=== PATIENT | female | born 1965 | race Caucasian/White ===

== ENCOUNTER 2017-10-28 16:05 | Emergency (ER) | payer OTHER, SELFPAY ==
--- NOTE | 2017-10-28 17:23 | EDM.PDOC ---
ED HPI GENERAL MEDICAL PROBLEM - General Chief Complaint: Cardiovascular Problem Stated Complaint: RACING HEART BEAT/NECK HURTS Time Seen by Provider: 10/28/17 16:18 Source of Information: Reports: Patient, Family (Daughter) History Limitations: Reports: No Limitations - History of Present Illness INITIAL COMMENTS - FREE TEXT/NARRATIVE: The patient states that she developed the sensation of a rapid heartbeat and stiffness in the back of her neck around 13:00 this afternoon, while sitting on the couch. She states that she had slight lightheadedness, but no associated nausea, diaphoresis, dyspnea, or sense of impending doom. She denies having associated chest discomfort. She states that she had similar symptoms in 2007. She had an extensive workup, that included a coronary angiogram, with everything being normal. The ultimate cause of her symptoms remains unknown. The patient's PCP is Genevieve Medrano. 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 (See Below) Musculoskeletal History: Reports: Arthritis Endocrine/Metabolic History: Reports: Diabetes, Type II, Obesity/BMI 30+ - Past Surgical History HEENT Surgical History: Reports: Adenoidectomy, Myringotomy w Tube(s) (bilateral ), Tonsillectomy Cardiovascular Surgical History: Reports: Other (See Below) (Coronary angiogram approximately 2007, clean) GI Surgical History: Reports: Hernia, Inguinal (right) Female Surgical History: Reports: Breast Reduction, Tubal Ligation Social & Family History - Family History Family Medical History: Noncontributory Cardiac: Reports: High Cholesterol, Hypertension - Tobacco Use Smoking Status *Q: Former Smoker Years of Tobacco use: 26 Packs/Tins Daily: 1 Month/Year Tobacco Last Used: Quit 1990 - Caffeine Use Caffeine Use: Reports: Coffee - Alcohol Use Alcohol Use History: Yes Alcohol Use Frequency: Rarely - Recreational Drug Use Recreational Drug Use: No - Living Situation & Occupation Living situation: Reports: , with Spouse 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 ED EXAM, GENERAL - Physical Exam Exam: See Below Exam Limited By: No Limitations General Appearance: Alert, WD/WN, No Apparent Distress Eye Exam: Bilateral Eye: Normal Inspection Ears: Normal External Exam, Hearing Grossly Normal Nose: Normal Inspection, No Blood Throat/Mouth: Normal Inspection, Normal Lips, Normal Voice, No Airway Compromise Head: Atraumatic, Normocephalic Neck: Normal Inspection, Full Range of Motion Respiratory/Chest: No Respiratory Distress, Lungs Clear, Normal Breath Sounds, No Accessory Muscle Use Cardiovascular: Normal Peripheral Pulses, Regular Rate, Rhythm, No Edema, No Gallop, No JVD, No Murmur, No Rub Peripheral Pulses: 4+: Radial (L), Radial (R) GI/Abdominal: Normal Bowel Sounds, Soft, Non-Tender, No Organomegaly, No Distention, No Abnormal Bruit, No Mass, Other (Obese) (Female) Exam: Deferred Rectal (Female) Exam: Deferred Back Exam: Normal Inspection, Full Range of Motion, NT Extremities: Normal Inspection, Normal Range of Motion, No Pedal Edema, Normal Capillary Refill Neurological: Alert, Oriented, Normal Cognition, No Motor/Sensory Deficits Psychiatric: Normal Affect Skin Exam: Warm, Dry, Intact, Normal Color, No Rash EKG INTERPRETATION EKG Date: 10/28/17 Time: 16:19 Rhythm: Other (Sinus tachycardia) Rate (Beats/Min): 104 [place]: Normal P-Wave: Present QRS: Normal ST-T: Normal QT: Normal Comparison: No Change (05/29/2016) Course - Vital Signs Last Recorded V/S: Last Vital Signs Temp 36.7 C 10/28/17 16:19 Pulse 96 10/28/17 17:53 Resp 16 10/28/17 17:53 BP 126/58 L 10/28/17 17:53 Pulse Ox 95 10/28/17 17:53 - Orders/Labs/Meds Orders: Active Orders 24 hr Category Date Time Status Accu Check [Blood Glucose Check, Bedside] [RC] ONETIME Care 10/28/17 18:54 Ordered EKG Documentation Completion [RC] STAT Care 10/28/17 16:40 Active Chest 2V [CR] Stat Exams 10/28/17 16:40 Taken GLYCOSYLATED HEMOGLOBIN,HGBA1C [CHEM] Stat Lab 10/28/17 19:15 Ordered Insulin Regular, Human [HumuLIN R] Med 10/28/17 19:17 Stat 10 unit SUBCUT ONETIME STA Labs: Laboratory Tests 10/28/17 10/28/17 10/28/17 Range/Units 16:18 16:18 16:18 WBC 8.75 (3.98-10.04) K/mm3 RBC 4.98 (3.98-5.22) M/mm3 Hgb 14.2 (11.2-15.7) gm/L Hct 42.3 (34.1-44.9) % MCV 84.9 (79.4-94.8) fl MCH 28.5 (25.6-32.2) pg MCHC 33.6 (32.2-35.5) g/dl RDW Std Deviation 42.1 (36.4-46.3) fL Plt Count 347 (182-369) K/mm3 MPV 11.3 (9.4-12.3) fl Neutrophils % (Manual) 63 H (40-60) % Band Neutrophils % 0 (0-10) % Lymphocytes % (Manual) 31 (20-40) % Atypical Lymphs % 0 % Monocytes % (Manual) 4 (2-10) % Eosinophils % (Manual) 1 (0.7-5.8) % Basophils % (Manual) 1 (0.1-1.2) Platelet Estimate Adequate RBC Morph Comment Normal PT 10.1 (9.5-12.1) SECONDS INR 0.93 APTT 27 (24-31) SECONDS D-Dimer, Quantitative 0.29 (0.19-0.50) mg/L Sodium 135 L (136-145) mEq/L Potassium 3.8 (3.5-5.1) mEq/L Chloride 97 L (98-107) mEq/L Carbon Dioxide 27 (21-32) mEq/L Anion Gap 14.8 (5-15) BUN 18 (7-18) mg/dL Creatinine 0.9 (0.55-1.02) mg/dL Est Cr Clr Drug Dosing 62.42 mL/min Estimated GFR (MDRD) > 60 (>60) mL/min BUN/Creatinine Ratio 20.0 H (14-18) Glucose 313 H (74-106) mg/dL POC Glucose (70-105) mg/dL Calcium 9.2 (8.5-10.1) mg/dL Magnesium 1.5 L (1.8-2.4) mg/dl Total Bilirubin 0.3 (0.2-1.0) mg/dL AST 16 (15-37) U/L ALT 46 (14-59) U/L Alkaline Phosphatase 111 (46-116) U/L Troponin I < 0.017 (0.00-0.056) ng/mL Total Protein 7.7 (6.4-8.2) g/dl Albumin 3.9 (3.4-5.0) g/dl Globulin 3.8 gm/dL Albumin/Globulin Ratio 1.0 (1-2) 10/28/17 Range/Units 18:58 WBC (3.98-10.04) K/mm3 RBC (3.98-5.22) M/mm3 Hgb (11.2-15.7) gm/L Hct (34.1-44.9) % MCV (79.4-94.8) fl MCH (25.6-32.2) pg MCHC (32.2-35.5) g/dl RDW Std Deviation (36.4-46.3) fL Plt Count (182-369) K/mm3 MPV (9.4-12.3) fl Neutrophils % (Manual) (40-60) % Band Neutrophils % (0-10) % Lymphocytes % (Manual) (20-40) % Atypical Lymphs % % Monocytes % (Manual) (2-10) % Eosinophils % (Manual) (0.7-5.8) % Basophils % (Manual) (0.1-1.2) Platelet Estimate RBC Morph Comment PT (9.5-12.1) SECONDS INR APTT (24-31) SECONDS D-Dimer, Quantitative (0.19-0.50) mg/L Sodium (136-145) mEq/L Potassium (3.5-5.1) mEq/L Chloride (98-107) mEq/L Carbon Dioxide (21-32) mEq/L Anion Gap (5-15) BUN (7-18) mg/dL Creatinine (0.55-1.02) mg/dL Est Cr Clr Drug Dosing mL/min Estimated GFR (MDRD) (>60) mL/min BUN/Creatinine Ratio (14-18) Glucose (74-106) mg/dL POC Glucose 336 H (70-105) mg/dL Calcium (8.5-10.1) mg/dL Magnesium (1.8-2.4) mg/dl Total Bilirubin (0.2-1.0) mg/dL AST (15-37) U/L ALT (14-59) U/L Alkaline Phosphatase (46-116) U/L Troponin I (0.00-0.056) ng/mL Total Protein (6.4-8.2) g/dl Albumin (3.4-5.0) g/dl Globulin gm/dL Albumin/Globulin Ratio (1-2) Meds: Medications Discontinued Medications Generic Name Dose Route Start Last Admin Trade Name Ollieq PRN Reason Stop Dose Admin Magnesium Sulfate 2 gm/ Premix 50 mls @ 50 mls/hr 10/28/17 17:23 10/28/17 17: 37 IV 10/28/17 18:22 50 mls/hr ONETIME ONE Administration Insulin Human Regular 7 unit 10/28/17 17:23 10/28/17 17:37 Humulin R SUBCUT 10/28/17 17:24 7 units ONETIME STA Administration - Re-Assessments/Exams Free Text/Narrative Re-Assessment/Exam: 10/28/17 17:21 2-view chest radiograph appears to be grossly unremarkable. Cardiac silhouette is within normal limits. No pulmonary vascular congestion. No pleural effusions seen. No pneumothorax. No focal infiltrate. Formal read per the Radiologist pending. The patient's magnesium level has returned depressed at 1.5. Her blood sugar is elevated at 313. I will order a 2 g magnesium rider and 7 units of regular insulin. 10/28/17 19:16 Test results discussed with the patient. As above, the patient's magnesium level was found to be depressed at 1.5, and she is now status post a 2 g Mg- rider. Her blood glucose was elevated at 313. She received 7 units of regular insulin, and her blood glucose was rechecked, now 330. I have ordered 10 units regular insulin SQ, after which I will discharge the patient home. The patient states that she has not taken any diabetic medication whatsoever for over 6 months. She states that she checks her blood sugar twice a day, but is not familiar with the values. Her case was discussed with Genevieve Medrano, who was able to access the patient's clinic notes. At her last office visit on , the patient's Accu-Cheks were 90-170. Her Hgb A1c at that time was 7.2% . The patient agrees to follow-up with Ms. Medrano in the clinic tomorrow. The cause of the patient's tachycardia and stiff neck or not clear, but do not appear to be due to a medical emergency, such as a pulmonary embolus, acute coronary event, or intrathoracic abnormality. The patient suspects that her symptoms are due to stress, which seems reasonable. 10/28/17 19:29 Before giving the insulin, the patient was Accu-Chek again, now 286. We will give 5 units regular insulin SQ, instead of 10. Departure - Departure Time of Disposition: 19:20 Disposition: Home, Self-Care 01 Condition: Fair Clinical Impression: Hyperglycemia due to type 2 diabetes mellitus, Sinus tachycardia, Neck stiffness Referrals: Genevieve Medrano PA [Primary Care Provider] - Forms: ED Department Discharge Additional Instructions: You were seen in the emergency room for the sensation of a rapid heartbeat and a stiff neck. Workup in the ER included blood work, a chest x-ray, and an ECG. Your magnesium level was found to be depressed at 1.5. You were given IV magnesium replacement in the ER. Your blood sugar was found to be significantly elevated at 313. You were given 7 units of regular insulin in the ER. A repeat Accu-Chek was down to 286. He received an additional 5 units prior to discharge from the ER. The remainder of your workup was unremarkable. You do not have pneumonia. You have not had a heart attack. You do not have a blood clot in your lungs. The cause of your symptoms is unclear, but could be related to anxiety. We recommend that you follow-up with your PCP, Genevieve Medrano, tomorrow, , 10/29/2017. If any other problems, please do not hesitate to return to the ER. - My Orders Last 24 Hours: My Active Orders 10/28/17 16:40 EKG Documentation Completion [RC] STAT Chest 2V [CR] Stat 10/28/17 18:54 Accu Check [Blood Glucose Check, Bedside] [RC] ONETIME 10/28/17 19:15 GLYCOSYLATED HEMOGLOBIN,HGBA1C [CHEM] Stat 10/28/17 19:17 Insulin Regular, Human [HumuLIN R] 10 unit SUBCUT ONETIME STA - Assessment/Plan Last 24 Hours: My Active Orders 10/28/17 16:40 EKG Documentation Completion [RC] STAT Chest 2V [CR] Stat 10/28/17 18:54 Accu Check [Blood Glucose Check, Bedside] [RC] ONETIME 10/28/17 19:15 GLYCOSYLATED HEMOGLOBIN,HGBA1C [CHEM] Stat 10/28/17 19:17 Insulin Regular, Human [HumuLIN R] 10 unit SUBCUT ONETIME STA
[2017-10-28] MEDS: Insulin Regular, Human 100 Units/ML 3 ML Vial SUBCUT STA ×2 (17:37→19:29)
[2017-10-28] MEDS: Magnesium Sulfate/Water 2 GM in Premix Bag 1 BAG IV ONE (17:37)
[2017-10-28 17:55] VITALS: BP 126/58
[2017-10-28] MEDS: Insulin Regular, Human 100 Units/ML 3 ML Vial SUBCUT ONE (19:33)
--- NOTE | 2017-10-29 06:56 | CR ---
Chest: Two views of the chest were obtained. Comparison: Prior chest x-ray of 05/29/16. Heart size and mediastinum are normal. Lungs are clear. Bony structures show mild degenerative change within the thoracic spine. Impression: 1. Incidental findings. Nothing acute is seen. Diagnostic code #2
[2017-10-29] MEDS ORDERED: Insulin Regular, Human 100 Units/ML 3 ML Vial SUBCUT ONE (19:30)
== END 2017-10-28 20:12 | disposition home or self-care (01) ==
LOC: JD.ED 16:05
DX: E11.65 Type 2 diabetes mellitus with hyperglycemia (principal); R00.0 Tachycardia, unspecified; M43.6 Torticollis; I10 Essential (primary) hypertension; K21.9 Gastro-esophageal reflux disease without esophagitis; E11.9 Type 2 diabetes mellitus without complications; Z87.891 Personal history of nicotine dependence; Z79.899 Other long term (current) drug therapy; Z79.82 Long term (current) use of aspirin
CPT/HCPCS: 36415; 71046; 80053; 82962; 83036; 83735; 84484; 85007; 85027; 85379; 85610; 85730; 93005; 96365; 96372; 99285; J1815; J3475